=== PATIENT | male | born 1935 | race African-American/Black ===

== ENCOUNTER 2019-03-08 17:57 | Emergency (ER) | payer OTHER ==
[~2019-03-08] VITALS: Ht 188 cm; Wt 118.0 kg
[2019-03-08 19:13] LABS: EOSINOPHILS % 0.5 % (0.0-5.0); HEMATOCRIT. 46.9 % (42.0-52.0); LYMPHOCYTES % 7.3 % (20.0-50.0); MEAN CORPUSCULAR HEMOGLOBIN 33.5 pg (28.0-32.0); MEAN CORPUSCULAR VOLUME 98.4 fL (80.0-94.0); MEAN PLATELET VOLUME 8.7 fl (7.4-10.4); MONOCYTES % 9.5 % (2.0-8.0); NEUTROPHILS % 81.7 % (40.0-76.0); PLATELET 166 x1000/uL (130-400); RED BLOOD CELL COUNT 4.77 mill/uL (4.7-6.1); RED CELL DISTRIBUTION WIDTH 13.4 % (11.6-14.6)
[2019-03-08 19:14] LABS: CHLORIDE 111 mEq/L (98-107)
[2019-03-08 19:16] LABS: INR 1.1; PROTHROMBIN TIME 11.1 sec (9.6-11.0)
[2019-03-08 19:53] LABS: CLARITY URINE CLEAR (CLEAR); COLOR URINE YELLOW (YELLOW); KETONES URINE TRACE (NEGATIVE); LEUKOCYTE ESTERASE URINE NEGATIVE (NEGATIVE); NITRITE URINE NEGATIVE (NEGATIVE); OCCULT BLOOD URINE NEGATIVE (NEGATIVE); PROTEIN URINE NEGATIVE (NEGATIVE); SPECIFIC GRAVITY URINE 1.021 (1.005-1.030)
[2019-03-08] MEDS ORDERED: SODIUM CHLORIDE 0.9% 1,000 ML IV ONE (22:00)
[2019-03-09 00:02] VITALS: BP 151/82
== END 2019-03-09 00:31 | disposition short-term general hospital (02) ==
LOC: ER 17:57 → CANBEDREQ 03-09 00:41
DX: R53.1 Weakness (principal); I10 Essential (primary) hypertension; H54.8 Legal blindness, as defined in USA; I69.354 Hemiplegia and hemiparesis following cerebral infarction affecting left non-dominant side
CPT/HCPCS: 36415; 71045; 81003; 83605; 83880; 84484; 93005; 99285

== ENCOUNTER 2019-08-17 12:35 | Emergency (ER) | payer OTHER ==
[~2019-08-17] VITALS: Ht 175.3 cm; Wt 72.8 kg
[2019-08-17] MEDS ORDERED: AMLO10TA80 PO (12:45)
[2019-08-17] MEDS ORDERED: ATOR-2 PO (12:45)
[2019-08-17] MEDS ORDERED: CLOP75TA33 PO (12:45)
[2019-08-17] MEDS ORDERED: LISI40TA4 PO (12:46)
[2019-08-17 13:05] LABS: BASOPHILS % 1.2 % (0.0-2.0); EOSINOPHILS % 2.4 % (0.0-5.0); HEMATOCRIT. 50.5 % (42.0-52.0); HEMOGLOBIN. 17.2 g/dL (14.0-18.0); LYMPHOCYTES % 28.7 % (20.0-50.0); MEAN CORPUSCULAR HEMOGLOBIN 32.8 pg (28.0-32.0); MEAN CORPUSCULAR VOLUME 96.6 fL (80.0-94.0); MEAN PLATELET VOLUME 8.9 fl (7.4-10.4); MONOCYTES % 8.9 % (2.0-8.0); NEUTROPHILS % 58.8 % (40.0-76.0); PLATELET 187 x1000/uL (130-400); RED BLOOD CELL COUNT 5.23 mill/uL (4.7-6.1)
[2019-08-17 13:12] LABS: CHLORIDE 113 mEq/L (98-107)
[2019-08-17 13:14] LABS: PARTIAL THROMBOPLASTIN TIME 26.1 sec (23.4-31.0); PROTHROMBIN TIME 10.5 sec (9.6-11.0)
[2019-08-17] MEDS ORDERED: ASPIRIN 325MG EC TABLET PO ONE (13:45)
[2019-08-17 15:06] VITALS: BP 140/85
== END 2019-08-17 15:21 | disposition short-term general hospital (02) ==
LOC: ER 12:35 → CANBEDREQ 15:10 → ER 15:21
DX: M62.81 Muscle weakness (generalized) (principal); I69.351 Hemiplegia and hemiparesis following cerebral infarction affecting right dominant side; I10 Essential (primary) hypertension; E78.00 Pure hypercholesterolemia, unspecified; F14.10 Cocaine abuse, uncomplicated; F11.10 Opioid abuse, uncomplicated; H54.8 Legal blindness, as defined in USA
CPT/HCPCS: 36415; 71045; 80053; 83880; 84484; 85025; 93005; 99285

== ENCOUNTER 2019-10-03 23:39 | Emergency (ER) | payer OTHER ==
[~2019-10-03] VITALS: Ht 188 cm; Wt 104.0 kg
[~2019-10-03 23:39] MED LIST: AMLO10TA80 PO; ATOR-2 PO; CLOP75TA33 PO; LISI40TA4 PO
[2019-10-04 00:58] LABS: BASOPHILS % 0.1 % (0.0-2.0); EOSINOPHILS % 3.3 % (0.0-5.0); HEMOGLOBIN. 14.8 g/dL (14.0-18.0); LYMPHOCYTES % 30.7 % (20.0-50.0); MEAN CORPUSCULAR HEMOGLOBIN 33.7 pg (28.0-32.0); MEAN CORPUSCULAR VOLUME 97.6 fL (80.0-94.0); MEAN PLATELET VOLUME 8.7 fl (7.4-10.4); MONOCYTES % 9.9 % (2.0-8.0); PLATELET 157 x1000/uL (130-400); RED CELL DISTRIBUTION WIDTH 13.9 % (11.6-14.6)
[2019-10-04] MEDS ORDERED: HYDROCODONE/ACETAMINOPHEN 5/325MG TABLET PO ONE (01:00)
[2019-10-04 01:02] LABS: CHLORIDE 114 mEq/L (98-107)
[2019-10-04 01:04] LABS: PARTIAL THROMBOPLASTIN TIME 26.6 sec (23.4-31.0)
[2019-10-04] MEDS ORDERED: ASPIRIN 325MG TABLET PO SCH (05:30)
[2019-10-04 07:14] VITALS: BP 148/91
== END 2019-10-04 07:14 | disposition short-term general hospital (02) ==
LOC: ER 23:39
DX: R20.0 Anesthesia of skin (principal); M25.561 Pain in right knee; M25.562 Pain in left knee; I10 Essential (primary) hypertension; Z79.899 Other long term (current) drug therapy
CPT/HCPCS: 36415; 71045; 80053; 83880; 84484; 85025; 93005; 99285

== ENCOUNTER 2020-01-02 00:30 | Emergency (ER) | payer OTHER ==
[~2020-01-02] VITALS: Ht 180.3 cm; Wt 122.0 kg
[2020-01-02] MEDS ORDERED: ACETAMINOPHEN 325MG TABLET PO ONE (01:30)
[2020-01-02] MEDS ORDERED: HYDROCODONE/ACETAMINOPHEN 5/325MG TABLET PO ONE (02:45)
[2020-01-02 04:16] VITALS: BP 156/82
== END 2020-01-02 04:29 | disposition short-term general hospital (02) ==
LOC: ER 00:30
DX: M54.5 Low back pain (principal); I10 Essential (primary) hypertension; M19.90 Unspecified osteoarthritis, unspecified site; H54.8 Legal blindness, as defined in USA; W01.0XXA Fall on same level from slipping, tripping and stumbling without subsequent striking against object, initial encounter; Y93.89 Activity, other specified; Y92.018 Other place in single-family (private) house as the place of occurrence of the external cause
CPT/HCPCS: 99285

== ENCOUNTER 2020-08-06 02:24 | Emergency (ER) | payer OTHER ==
[~2020-08-06] VITALS: Ht 175.3 cm; Wt 104.0 kg
[~2020-08-06 02:24] MED LIST changes: +LISI40TA13 PO; -LISI40TA4 PO
[2020-08-06] MEDS ORDERED: SODIUM CHLORIDE 0.9% 1,000 ML IV ONE (03:15)
[2020-08-06 06:57] VITALS: BP 141/81
== END 2020-08-06 08:09 | disposition home or self-care (01) ==
LOC: ER 02:24
DX: R42 Dizziness and giddiness (principal); I10 Essential (primary) hypertension; M19.90 Unspecified osteoarthritis, unspecified site; H54.8 Legal blindness, as defined in USA
CPT/HCPCS: 93005; 96360; 99283; J7030

== ENCOUNTER 2020-10-08 16:16 | Inpatient (IN) | payer OTHER ==
[~2020-10-08] VITALS: Ht 177.8 cm; Wt 108.0 kg
[2020-10-08 17:21] LABS: BASOPHILS % 0.8 % (0.0-2.0); EOSINOPHILS % 1.2 % (0.0-5.0); HEMATOCRIT. 41.7 % (42.0-52.0); LYMPHOCYTES % 22.9 % (20.0-50.0); MEAN CORPUSCULAR HEMOGLOBIN 34.4 pg (28.0-32.0); MEAN CORPUSCULAR VOLUME 95.5 fL (80.0-94.0); MEAN PLATELET VOLUME 8.4 fl (7.4-10.4); MONOCYTES % 10.1 % (2.0-8.0); PLATELET 169 x1000/uL (130-400); RED BLOOD CELL COUNT 4.37 mill/uL (4.7-6.1); RED CELL DISTRIBUTION WIDTH 12.8 % (11.6-14.6)
[2020-10-08 17:24] LABS: CLARITY URINE CLEAR (CLEAR); COLOR URINE YELLOW (YELLOW); KETONES URINE TRACE (NEGATIVE); LEUKOCYTE ESTERASE URINE NEGATIVE (NEGATIVE); NITRITE URINE NEGATIVE (NEGATIVE); OCCULT BLOOD URINE NEGATIVE (NEGATIVE); PH URINE 5.5 (4.5-8.0); PROTEIN URINE NEGATIVE (NEGATIVE); SPECIFIC GRAVITY URINE 1.023 (1.005-1.030); UROBILINOGEN URINE 0.2 E.U./dL (0.2-1.0)
[2020-10-08 17:28] LABS: CHLORIDE 117 mEq/L (98-107)
[2020-10-08 17:30] LABS: PROTHROMBIN TIME 11.2 sec (9.6-11.0)
[2020-10-08 17:32] LABS: ETHANOL BLOOD < 10 mg/dL
[2020-10-08] MEDS ORDERED: SODIUM CHLORIDE 0.9% 1,000 ML IV ONE (18:00)
[2020-10-08] MEDS ORDERED: ONDANSETRON HCL 4MG/2ML INJ IV PRN (19:45)
[2020-10-08] MEDS ORDERED: CLONIDINE 0.1MG TABLET PO PRN (19:45)
[2020-10-08] MEDS ORDERED: ACETAMINOPHEN 325MG TABLET PO PRN (19:45)
[2020-10-08] MEDS ORDERED: DIPHENHYDRAMINE 50MG/ML VIAL IV PRN (19:45)
[2020-10-08] MEDS ORDERED: IPRATROPIUM/ALBUTEROL 0.5-3(2.5)MG/3ML NEB HHN PRN (19:45)
[2020-10-08 21:30] VITALS: BP 124/47
[2020-10-08 22:00] VITALS: BP 124/52
[2020-10-09] VITALS (81 sets, daily range): BP systolic 91–158; BP diastolic 44–103
[2020-10-09] MEDS: DOPAMINE 400MG/250ML PREMIX 250 ML IV PRN ×2 (03:27→13:54)
[2020-10-09 05:17] LABS: BASOPHILS % 1.1 % (0.0-2.0); EOSINOPHILS % 2.6 % (0.0-5.0); HEMATOCRIT. 45.6 % (42.0-52.0); HEMOGLOBIN. 15.5 g/dL (14.0-18.0); MEAN CORPUSCULAR HEMOGLOBIN 33.2 pg (28.0-32.0); MEAN CORPUSCULAR VOLUME 97.5 fL (80.0-94.0); MEAN PLATELET VOLUME 8.6 fl (7.4-10.4); NEUTROPHILS % 47.3 % (40.0-76.0); PLATELET 160 x1000/uL (130-400); RED BLOOD CELL COUNT 4.68 mill/uL (4.7-6.1); RED CELL DISTRIBUTION WIDTH 12.9 % (11.6-14.6)
[2020-10-09 05:25] LABS: CHLORIDE 116 mEq/L (98-107)
[2020-10-09 05:37] LABS: LDL CHOLESTEROL 28 mg/dL (5-100)
[2020-10-09 05:38] LABS: HDL CHOLESTEROL 46 mg/dL (40-59)
[2020-10-09] MEDS ORDERED: MAGNESIUM 2 G PREMIX 50 ML IV SCH (07:00)
[2020-10-09] MEDS ORDERED: LIDOCAINE HCL 1% 20ML VIAL (Pyxis) INJ ONE ×2 (07:52→14:18)
[2020-10-09] MEDS: MAGNESIUM OXIDE 400MG TABLET PO SCH (09:00)
[2020-10-09] MEDS: SODIUM CHLORIDE 0.45% 1,000 ML IV SCH ×2 (09:37→21:56)
[2020-10-09] MEDS ORDERED: GENTAMICIN/NS IRRIGATION 500 ML IR ONE (14:18)
[2020-10-09] MEDS ORDERED: IODIXANOL 320MG/ML 100 ML BOTTLE IV ONE (14:18)
[2020-10-09] MEDS ORDERED: GENTAMICIN SULF 40MG/ML 2ML VIAL ONE (14:18)
[2020-10-09] MEDS ORDERED: CEFAZOLIN 1000MG PREMIX 50 ML IV ONE (14:21)
[2020-10-09] MEDS ORDERED: MIDAZOLAM HCL 2 MG/2 ML VIAL ONE ×2 (14:24→15:06)
[2020-10-09] MEDS ORDERED: FENTANYL CITRATE/PF 50MCG/ML 2ML VIAL ONE (14:24)
[2020-10-09] MEDS: HYDROCODONE/ACETAMINOPHEN 5/325MG TABLET PO PRN (17:24)
[2020-10-09] MEDS ORDERED: CEFAZOLIN 1000MG PREMIX 50 ML IV SCH (18:00)
[2020-10-09] MEDS: MORPHINE SULFATE 2 MG/ML CPJ (NOT FOR IM USE) IV PRN (19:54)
[2020-10-09] MEDS: CEFAZOLIN 1000MG PREMIX 50 ML IV SCH (21:53)
[2020-10-09] MEDS: ATORVASTATIN CALCIUM 40MG TABLET PO SCH (21:53)
[2020-10-09] MEDS ORDERED: CEFAZOLIN SODIUM 1000MG/VIAL IV SCH (22:00)
[2020-10-10] VITALS (88 sets, daily range): BP systolic 110–183; BP diastolic 56–108
[2020-10-10 05:41] LABS: BASOPHILS % 0.4 % (0.0-2.0); EOSINOPHILS % 1.8 % (0.0-5.0); HEMATOCRIT. 42.7 % (42.0-52.0); HEMOGLOBIN. 14.7 g/dL (14.0-18.0); LYMPHOCYTES % 17.5 % (20.0-50.0); MEAN CORPUSCULAR HEMOGLOBIN 33.2 pg (28.0-32.0); MEAN CORPUSCULAR VOLUME 96.6 fL (80.0-94.0); MEAN PLATELET VOLUME 8.7 fl (7.4-10.4); NEUTROPHILS % 69.3 % (40.0-76.0); PLATELET 152 x1000/uL (130-400); RED BLOOD CELL COUNT 4.42 mill/uL (4.7-6.1); RED CELL DISTRIBUTION WIDTH 12.9 % (11.6-14.6)
[2020-10-10 05:52] LABS: CHLORIDE 110 mEq/L (98-107)
[2020-10-10] MEDS: CEFAZOLIN 1000MG PREMIX 50 ML IV SCH ×3 (06:36→21:15)
[2020-10-10] MEDS: MORPHINE SULFATE 2 MG/ML CPJ (NOT FOR IM USE) IV PRN ×2 (06:39→13:17)
[2020-10-10] MEDS: MAGNESIUM OXIDE 400MG TABLET PO SCH (09:04)
[2020-10-10] MEDS: SODIUM CHLORIDE 0.45% 1,000 ML IV SCH (10:30)
[2020-10-10] MEDS: ATORVASTATIN CALCIUM 40MG TABLET PO SCH (21:13)
[2020-10-11] VITALS (24 sets, daily range): BP systolic 117–161; BP diastolic 63–99
[2020-10-11] MEDS: SODIUM CHLORIDE 0.45% 1,000 ML IV SCH ×3 (05:34→19:30)
[2020-10-11 05:48] LABS: BASOPHILS % 0.7 % (0.0-2.0); EOSINOPHILS % 5.3 % (0.0-5.0); HEMATOCRIT. 42.9 % (42.0-52.0); HEMOGLOBIN. 14.9 g/dL (14.0-18.0); LYMPHOCYTES % 26.8 % (20.0-50.0); MEAN CORPUSCULAR HEMOGLOBIN 33.5 pg (28.0-32.0); MEAN CORPUSCULAR VOLUME 96.5 fL (80.0-94.0); MEAN PLATELET VOLUME 8.7 fl (7.4-10.4); MONOCYTES % 12.6 % (2.0-8.0); NEUTROPHILS % 54.6 % (40.0-76.0); PLATELET 132 x1000/uL (130-400); RED BLOOD CELL COUNT 4.45 mill/uL (4.7-6.1)
[2020-10-11 06:11] LABS: CHLORIDE 113 mEq/L (98-107)
[2020-10-11] MEDS: MAGNESIUM OXIDE 400MG TABLET PO SCH (09:07)
[2020-10-11] MEDS: ENOXAPARIN 30MG/0.3ML SYR SUBCUT SCH ×2 (12:34→20:13)
[2020-10-11] MEDS: HYDROCODONE/ACETAMINOPHEN 5/325MG TABLET PO PRN (15:16)
[2020-10-11] MEDS ORDERED: HYDRALAZINE 20MG/ML VIAL IV NR (19:30)
[2020-10-11] MEDS: ATORVASTATIN CALCIUM 40MG TABLET PO SCH (20:13)
== END 2020-10-11 21:25 | disposition short-term general hospital (02) | DRG 243 ==
LOC: ER 16:16 → 5EST 19:54 → ENRESERV 20:29 → 5EST 22:12 → CVICU 10-09 00:30
PROVIDERS: ADMIT Internal Medicine; ATTEND Internal Medicine
PROC: 0JH606Z Insertion of Pacemaker, Dual Chamber into Chest Subcutaneous Tissue and Fascia, Open Approach (ICD-10-PCS; principal; 2020-10-09)
PROC: 02H63JZ Insertion of Pacemaker Lead into Right Atrium, Percutaneous Approach (ICD-10-PCS; 2020-10-09)
PROC: 02HK3JZ Insertion of Pacemaker Lead into Right Ventricle, Percutaneous Approach (ICD-10-PCS; 2020-10-09)
DX: I44.2 Atrioventricular block, complete (principal); I69.351 Hemiplegia and hemiparesis following cerebral infarction affecting right dominant side; I49.5 Sick sinus syndrome; E78.5 Hyperlipidemia, unspecified; E83.42 Hypomagnesemia; E78.00 Pure hypercholesterolemia, unspecified; M19.90 Unspecified osteoarthritis, unspecified site; I10 Essential (primary) hypertension; I95.9 Hypotension, unspecified; Z20.822 Contact with and (suspected) exposure to COVID-19; I73.9 Peripheral vascular disease, unspecified; J44.9 Chronic obstructive pulmonary disease, unspecified; Z79.899 Other long term (current) drug therapy; Z79.01 Long term (current) use of anticoagulants; Z87.891 Personal history of nicotine dependence
CPT/HCPCS: 33208; 36415; 71045; 76937; 80048; 80053; 80061; 80320; 81003; 83605; 83735; 83880; 84443; 84484; 85025; 85379; 87426; 93005; 93306; 93970; 99291; A4565; C1725; C1769; C1785; C1898; J0360; J0690; J1265; J1580; J1650; J2250; J2270; J2405; J3010; J3475; J3490; J7030; Q9967; G0480

== ENCOUNTER 2020-12-25 11:06 | Emergency (ER) | payer OTHER ==
[~2020-12-25] VITALS: Ht 172.7 cm; Wt 103.0 kg
[2020-12-25] MEDS ORDERED: TRAMADOL 50MG TABLET PO ONE (11:45)
[2020-12-25] MEDS ORDERED: NITROGLYCERIN OINT 1GM/INCH UDPKT TD ONE (11:45)
[2020-12-25 12:13] LABS: EOSINOPHILS % 1.8 % (0.0-5.0); HEMOGLOBIN. 13.6 g/dL (14.0-18.0); LYMPHOCYTES % 22.7 % (20.0-50.0); MEAN PLATELET VOLUME 8.6 fl (7.4-10.4); MONOCYTES % 13.2 % (2.0-8.0); NEUTROPHILS % 61.3 % (40.0-76.0); PLATELET 157 x1000/uL (130-400); RED BLOOD CELL COUNT 4.11 mill/uL (4.7-6.1); RED CELL DISTRIBUTION WIDTH 13.6 % (11.6-14.6)
[2020-12-25 12:21] LABS: CHLORIDE 112 mEq/L (98-107)
[2020-12-25] MEDS ORDERED: SODIUM CHLORIDE 0.9% 500 ML IV ONE (12:45)
[2020-12-25 15:24] VITALS: BP 135/65
== END 2020-12-25 15:34 | disposition short-term general hospital (02) ==
LOC: ER 11:06 → CANBEDREQ 15:31 → ER 15:34
DX: R07.89 Other chest pain (principal); I10 Essential (primary) hypertension; E78.00 Pure hypercholesterolemia, unspecified; Z86.73 Personal history of transient ischemic attack (TIA), and cerebral infarction without residual deficits; Z98.890 Other specified postprocedural states
CPT/HCPCS: 36415; 71045; 80053; 83880; 84484; 85025; 93005; 99285; J7040

== ENCOUNTER 2021-03-16 13:09 | Emergency (ER) | payer OTHER ==
[~2021-03-16] VITALS: Ht 182.9 cm; Wt 82.0 kg
[2021-03-16] MEDS ORDERED: ASPIRIN 81MG TABLET PO ONE (14:45)
[2021-03-16 15:30] LABS: BASOPHILS % 0.8 % (0.0-2.0); EOSINOPHILS % 3.3 % (0.0-5.0); HEMATOCRIT. 43.7 % (42.0-52.0); HEMOGLOBIN. 14.2 g/dL (14.0-18.0); LYMPHOCYTES % 31.7 % (20.0-50.0); MEAN CORPUSCULAR HEMOGLOBIN 31.3 pg (28.0-32.0); MEAN CORPUSCULAR VOLUME 96.6 fL (80.0-94.0); MEAN PLATELET VOLUME 8.4 fl (7.4-10.4); MONOCYTES % 11.7 % (2.0-8.0); NEUTROPHILS % 52.5 % (40.0-76.0); PLATELET 160 x1000/uL (130-400); RED BLOOD CELL COUNT 4.52 mill/uL (4.7-6.1); RED CELL DISTRIBUTION WIDTH 13.9 % (11.6-14.6)
[2021-03-16 15:40] LABS: CHLORIDE 110 mEq/L (98-107)
[2021-03-16 15:44] LABS: ETHANOL BLOOD < 10 mg/dL
[2021-03-16 20:35] VITALS: BP 166/93
[2021-03-16] MEDS ORDERED: MORPHINE SULFATE 2 MG/ML CPJ (NOT FOR IM USE) IV NR (21:30)
== END 2021-03-16 20:53 | disposition short-term general hospital (02) ==
LOC: ER 13:09 → CANBEDREQ 22:49
DX: E66.9 Obesity, unspecified (principal); E78.00 Pure hypercholesterolemia, unspecified; I25.2 Old myocardial infarction; I10 Essential (primary) hypertension; Z68.24 Body mass index [BMI] 24.0-24.9, adult; Z86.73 Personal history of transient ischemic attack (TIA), and cerebral infarction without residual deficits; Z98.890 Other specified postprocedural states; Z13.9 Encounter for screening, unspecified
CPT/HCPCS: 36415; 71045; 80053; 80320; 83605; 83880; 84484; 85025; 99285; G0480

== ENCOUNTER 2021-05-21 18:00 | Emergency (ER) | payer OTHER ==
[~2021-05-21] VITALS: Ht 177.8 cm; Wt 110.0 kg
[2021-05-21 18:42] LABS: BASOPHILS % 1.1 % (0.0-2.0); EOSINOPHILS % 3.2 % (0.0-5.0); HEMATOCRIT. 43.6 % (42.0-52.0); HEMOGLOBIN. 14.6 g/dL (14.0-18.0); LYMPHOCYTES % 33.5 % (20.0-50.0); MEAN CORPUSCULAR HEMOGLOBIN 32.1 pg (28.0-32.0); MEAN CORPUSCULAR VOLUME 95.8 fL (80.0-94.0); MEAN PLATELET VOLUME 8.5 fl (7.4-10.4); MONOCYTES % 11.8 % (2.0-8.0); NEUTROPHILS % 50.4 % (40.0-76.0); PLATELET 148 x1000/uL (130-400); RED BLOOD CELL COUNT 4.55 mill/uL (4.7-6.1); RED CELL DISTRIBUTION WIDTH 13.7 % (11.6-14.6)
[2021-05-21 19:23] LABS: CHLORIDE 114 mEq/L (98-107)
[2021-05-21] MEDS ORDERED: SODIUM CHLORIDE 0.9% 1,000 ML IV ONE (21:15)
[2021-05-22 00:09] VITALS: BP 148/85
== END 2021-05-22 01:16 | disposition short-term general hospital (02) ==
LOC: ER 18:00
DX: R42 Dizziness and giddiness (principal); D72.819 Decreased white blood cell count, unspecified; E87.0 Hyperosmolality and hypernatremia; E78.00 Pure hypercholesterolemia, unspecified; I25.2 Old myocardial infarction; H54.7 Unspecified visual loss; I10 Essential (primary) hypertension; M19.90 Unspecified osteoarthritis, unspecified site; Z95.0 Presence of cardiac pacemaker; Z86.73 Personal history of transient ischemic attack (TIA), and cerebral infarction without residual deficits
CPT/HCPCS: 36415; 71045; 80053; 83880; 84484; 85025; 93005; 96360; 99285

== ENCOUNTER 2021-07-14 07:44 | Emergency (ER) | payer OTHER ==
[~2021-07-14] VITALS: Ht 177.8 cm; Wt 102.0 kg
[2021-07-14] MEDS ORDERED: MECLIZINE 25MG TABLET PO ONE (08:30)
[2021-07-14 08:58] LABS: EOSINOPHILS % 3.2 % (0.0-5.0); HEMATOCRIT. 43.8 % (42.0-52.0); LYMPHOCYTES % 36.7 % (20.0-50.0); MEAN CORPUSCULAR HEMOGLOBIN 33.1 pg (28.0-32.0); MEAN CORPUSCULAR VOLUME 96.8 fL (80.0-94.0); MEAN PLATELET VOLUME 8.2 fl (7.4-10.4); MONOCYTES % 11.9 % (2.0-8.0); NEUTROPHILS % 47.2 % (40.0-76.0); PLATELET 141 x1000/uL (130-400); RED BLOOD CELL COUNT 4.53 mill/uL (4.7-6.1); RED CELL DISTRIBUTION WIDTH 14.2 % (11.6-14.6)
[2021-07-14 09:06] LABS: CHLORIDE 110 mEq/L (98-107)
[2021-07-14 09:10] LABS: ETHANOL BLOOD < 10 mg/dL
[2021-07-14 11:47] LABS: *AMPHETAMINES SCREEN URINE NEGATIVE (NEGATIVE); *BARBITURATES SCREEN URINE NEGATIVE (NEGATIVE); *BENZODIAZEPINES SCREEN URINE NEGATIVE (NEGATIVE); *COCAINE SCREEN URINE NEGATIVE (NEGATIVE); METHADONE URINE SCREEN NEGATIVE (NEGATIVE)
[2021-07-14 11:48] LABS: CANNABINOID URINE SCREEN NEGATIVE (NEGATIVE); OPIATES URINE SCREEN NEGATIVE (NEGATIVE); PHENCYCLIDINE URINE SCREEN NEGATIVE (NEGATIVE)
[2021-07-14] MEDS ORDERED: MECL-159 MT (12:29)
[2021-07-14 17:25] VITALS: BP 144/77
== END 2021-07-14 17:35 | disposition home or self-care (01) ==
LOC: ER 07:44
DX: R55 Syncope and collapse (principal); R42 Dizziness and giddiness; I10 Essential (primary) hypertension; E78.5 Hyperlipidemia, unspecified; I44.2 Atrioventricular block, complete; I69.351 Hemiplegia and hemiparesis following cerebral infarction affecting right dominant side; H54.8 Legal blindness, as defined in USA
CPT/HCPCS: 36415; 71045; 80053; 80305; 80320; 83880; 84484; 85025; 93005; 99285; J8597; G0480

== ENCOUNTER 2021-08-24 00:52 | Emergency (ER) | payer OTHER ==
[~2021-08-24] VITALS: Ht 180.3 cm; Wt 113.0 kg
[~2021-08-24 00:52] MED LIST changes: +MECL-159 MT
[2021-08-24 02:29] LABS: HEMATOCRIT. 44.7 % (42.0-52.0); HEMOGLOBIN. 15.3 g/dL (14.0-18.0); MEAN CORPUSCULAR HEMOGLOBIN 33.5 pg (28.0-32.0); MEAN CORPUSCULAR VOLUME 98.1 fL (80.0-94.0); MEAN PLATELET VOLUME 9.4 fl (7.4-10.4); PLATELET 181 x1000/uL (130-400); RED BLOOD CELL COUNT 4.56 mill/uL (4.7-6.1); RED CELL DISTRIBUTION WIDTH 13.4 % (11.6-14.6)
[2021-08-24 02:34] LABS: CHLORIDE 113 mEq/L (98-107)
[2021-08-24 07:14] LABS: PLATELET ESTIMATE NORMAL
[2021-08-24 11:05] VITALS: BP 155/85
== END 2021-08-24 11:12 | disposition home or self-care (01) ==
LOC: ER 00:52
DX: R10.12 Left upper quadrant pain (principal); Z86.73 Personal history of transient ischemic attack (TIA), and cerebral infarction without residual deficits; Z79.899 Other long term (current) drug therapy
CPT/HCPCS: 36415; 71045; 80053; 83880; 84484; 85025; 93005; 99285

== ENCOUNTER 2021-10-26 18:31 | Emergency (ER) | payer OTHER ==
[~2021-10-26] VITALS: Ht 165.1 cm; Wt 75.0 kg
[2021-10-26] MEDS ORDERED: ACETAMINOPHEN 325MG TABLET PO ONE (19:30)
[2021-10-26] MEDS ORDERED: PROCHLORPERAZINE 10MG/2ML VIAL IV ONE (19:30)
[2021-10-26] MEDS ORDERED: DIPHENHYDRAMINE 50MG/ML VIAL IV ONE (19:30)
[2021-10-26 19:59] LABS: BASOPHILS % 0.7 % (0.0-2.0); EOSINOPHILS % 2.8 % (0.0-5.0); HEMATOCRIT. 45.5 % (42.0-52.0); HEMOGLOBIN. 15.4 g/dL (14.0-18.0); LYMPHOCYTES % 35.8 % (20.0-50.0); MEAN CORPUSCULAR VOLUME 97.3 fL (80.0-94.0); MEAN PLATELET VOLUME 8.6 fl (7.4-10.4); MONOCYTES % 10.2 % (2.0-8.0); NEUTROPHILS % 50.5 % (40.0-76.0); PLATELET 141 x1000/uL (130-400); RED BLOOD CELL COUNT 4.68 mill/uL (4.7-6.1); RED CELL DISTRIBUTION WIDTH 13.1 % (11.6-14.6)
[2021-10-26 20:06] LABS: CHLORIDE 111 mEq/L (98-107)
[2021-10-26] MEDS ORDERED: ACETAMINOPHEN 325MG TABLET PO NR (21:30)
[2021-10-26] MEDS ORDERED: DIPHENHYDRAMINE 50MG/ML VIAL IV NR (21:30)
[2021-10-27 01:18] VITALS: BP 146/88
== END 2021-10-27 01:43 | disposition home or self-care (01) ==
LOC: ER 18:31
DX: R00.2 Palpitations (principal); R51.9 Headache, unspecified; I10 Essential (primary) hypertension; Z86.73 Personal history of transient ischemic attack (TIA), and cerebral infarction without residual deficits
CPT/HCPCS: 36415; 70450; 80053; 84484; 85025; 93005; 96374; 96375; 99285; J0780; J1200

== ENCOUNTER 2022-07-30 19:34 | Emergency (ER) | payer OTHER ==
[~2022-07-30] VITALS: Ht 175.3 cm; Wt 125.0 kg
[2022-07-30 21:15] LABS: BASOPHILS % 1.2 % (0.0-2.0); EOSINOPHILS % 2.3 % (0.0-5.0); HEMOGLOBIN. 14.4 g/dL (14.0-18.0); LYMPHOCYTES % 32.3 % (20.0-50.0); MEAN CORPUSCULAR HEMOGLOBIN 33.4 pg (28.0-32.0); MEAN CORPUSCULAR VOLUME 97.3 fL (80.0-94.0); MONOCYTES % 10.7 % (2.0-8.0); NEUTROPHILS % 53.5 % (40.0-76.0); PLATELET 142 x1000/uL (130-400); RED BLOOD CELL COUNT 4.32 mill/uL (4.7-6.1); RED CELL DISTRIBUTION WIDTH 13.4 % (11.6-14.6)
[2022-07-30 21:20] LABS: CLARITY URINE CLEAR (CLEAR); COLOR URINE YELLOW (YELLOW); KETONES URINE NEGATIVE (NEGATIVE); LEUKOCYTE ESTERASE URINE NEGATIVE (NEGATIVE); NITRITE URINE NEGATIVE (NEGATIVE); OCCULT BLOOD URINE NEGATIVE (NEGATIVE); PROTEIN URINE NEGATIVE (NEGATIVE); SPECIFIC GRAVITY URINE 1.018 (1.005-1.030)
[2022-07-30 21:27] LABS: CHLORIDE 111 mEq/L (98-107)
[2022-07-30 22:01] VITALS: BP 119/62
== END 2022-07-30 23:58 | disposition home or self-care (01) ==
LOC: ER 20:43
DX: R55 Syncope and collapse (principal); I10 Essential (primary) hypertension; Z86.73 Personal history of transient ischemic attack (TIA), and cerebral infarction without residual deficits
CPT/HCPCS: 36415; 80053; 81003; 84484; 85025; 93005; 99284

== ENCOUNTER 2022-08-28 22:28 | Emergency (ER) | payer OTHER ==
[~2022-08-28] VITALS: Ht 177.8 cm; Wt 109.0 kg
[2022-08-29] MEDS ORDERED: HYDROCODONE/ACETAMINOPHEN 5/325MG TABLET PO ONE (00:15)
[2022-08-29 00:18] VITALS: BP 149/73
[2022-08-29 01:32] LABS: BASOPHILS % 0.7 % (0.0-2.0); EOSINOPHILS % 3.4 % (0.0-5.0); HEMATOCRIT. 43.6 % (42.0-52.0); HEMOGLOBIN. 14.4 g/dL (14.0-18.0); LYMPHOCYTES % 31.9 % (20.0-50.0); MEAN CORPUSCULAR HEMOGLOBIN 32.8 pg (28.0-32.0); MONOCYTES % 10.1 % (2.0-8.0); NEUTROPHILS % 53.9 % (40.0-76.0); PLATELET 171 x1000/uL (130-400); RED CELL DISTRIBUTION WIDTH 13.9 % (11.6-14.6)
[2022-08-29 01:43] LABS: CHLORIDE 112 mEq/L (98-107)
== END 2022-08-29 06:23 | disposition home or self-care (01) ==
LOC: ER 22:28
DX: R00.2 Palpitations (principal); I10 Essential (primary) hypertension; Z86.73 Personal history of transient ischemic attack (TIA), and cerebral infarction without residual deficits
CPT/HCPCS: 36415; 71045; 80053; 84484; 85025; 93005; 99285

== ENCOUNTER 2023-04-16 23:15 | Emergency (ER) | payer OTHER ==
[~2023-04-16] VITALS: Ht 175.3 cm; Wt 82.0 kg
[~2023-04-16 23:15] MED LIST changes: -MECL-159 MT; +MECL-299 MT
[2023-04-16 23:27] VITALS: O2SAT 97
[2023-04-17 00:19] LABS: BASOPHILS % 0.5 % (0.0-2.0); DIFFERENTIAL COMMENT 0; EOSINOPHILS % 1.9 % (0.0-5.0); HEMATOCRIT. 45.3 % (42.0-52.0); HEMOGLOBIN. 14.8 g/dL (14.0-18.0); LYMPHOCYTES % 28.6 % (20.0-50.0); MEAN CORPUSCULAR HGB CONC 32.8 g/dL (31.0-37.0); MEAN CORPUSCULAR VOLUME 100.7 fL (80.0-94.0); MEAN PLATELET VOLUME 7.8 fl (7.4-10.4); MONOCYTES % 9.9 % (2.0-8.0); NEUTROPHILS % 59.1 % (40.0-76.0); PLATELET 147 x1000/uL (130-400); RED CELL DISTRIBUTION WIDTH 13.3 % (11.6-14.6); WHITE BLOOD COUNT 4.7 x1000/uL (4.5-11.0)
[2023-04-17 00:31] LABS: ALANINE AMINOTRANSFERASE 16 IU/L (10-49); ALBUMIN 3.8 g/dL (3.2-4.8); ASPARTATE AMINOTRANSFERASE 20 IU/L (<34); BILIRUBIN TOTAL 0.8 mg/dL (0.1-1.0); CALCIUM 9.1 mg/dL (8.7-10.4); CARBON DIOXIDE 30 mEq/L (21-32); CHLORIDE 111 mEq/L (98-107); CREATININE 1.3 mg/dL (0.6-1.3); GLUCOSE 104 mg/dL (70-105); POTASSIUM 3.8 mEq/L (3.5-5.1); PROTEIN TOTAL 6.9 g/dL (6.0-8.3); SODIUM 144 mEq/L (136-145); TROPONIN I HIGH SENSITIVITY 21 ng/L (3.0-53); UREA NITROGEN BLOOD 11 mg/dL (9-23)
[2023-04-17] MEDS ORDERED: ACETAMINOPHEN 325MG TABLET PO ONE (02:30)
[2023-04-17 03:27] LABS: TROPONIN I HIGH SENSITIVITY 24 ng/L (3.0-53)
[2023-04-17 09:28] VITALS: BP 156/156; PULSE 78; RESP 18; TEMP 98.7
== END 2023-04-17 10:01 | disposition home or self-care (01) ==
LOC: ER 23:28
DX: R00.2 Palpitations (principal); I10 Essential (primary) hypertension; Z86.73 Personal history of transient ischemic attack (TIA), and cerebral infarction without residual deficits; Z79.899 Other long term (current) drug therapy
CPT/HCPCS: 36415; 71045; 80053; 84484; 85025; 93005; 99285

== ENCOUNTER 2023-05-11 06:03 | Emergency (ER) | payer OTHER ==
[~2023-05-11] VITALS: Ht 175.3 cm; Wt 91.0 kg
[2023-05-11 06:17] VITALS: TEMP 98.3; O2SAT 98
[2023-05-11] MEDS ORDERED: ACETAMINOPHEN 325MG TABLET PO STA (06:24)
[2023-05-11 07:55] LABS: BASOPHILS % 0.6 % (0.0-2.0); EOSINOPHILS % 3.1 % (0.0-5.0); HEMATOCRIT. 44.4 % (42.0-52.0); HEMOGLOBIN. 14.7 g/dL (14.0-18.0); LYMPHOCYTES % 29.1 % (20.0-50.0); MEAN PLATELET VOLUME 8.6 fl (7.4-10.4); MONOCYTES % 9.8 % (2.0-8.0); NEUTROPHILS % 57.4 % (40.0-76.0); PLATELET 153 x1000/uL (130-400); RED BLOOD CELL COUNT 4.44 mill/uL (4.7-6.1); RED CELL DISTRIBUTION WIDTH 13.3 % (11.6-14.6); WHITE BLOOD COUNT 4.4 x1000/uL (4.5-11.0)
[2023-05-11 08:13] LABS: ALANINE AMINOTRANSFERASE 25 IU/L (10-49); ALBUMIN 3.7 g/dL (3.2-4.8); ASPARTATE AMINOTRANSFERASE 26 IU/L (<34); BILIRUBIN TOTAL 1.1 mg/dL (0.1-1.0); CALCIUM 9.1 mg/dL (8.7-10.4); CARBON DIOXIDE 24 mEq/L (21-32); CHLORIDE 110 mEq/L (98-107); CREATININE 1.2 mg/dL (0.6-1.3); GLUCOSE 94 mg/dL (70-105); POTASSIUM 4.4 mEq/L (3.5-5.1); PROTEIN TOTAL 6.8 g/dL (6.0-8.3); SODIUM 144 mEq/L (136-145); TROPONIN I HIGH SENSITIVITY 16 ng/L (3.0-53); UREA NITROGEN BLOOD 9 mg/dL (9-23)
[2023-05-11 08:18] LABS: INR 1.1; PROTHROMBIN TIME 11.3 sec (9.6-11.0)
[2023-05-11] MEDS ORDERED: ACETAMINOPHEN 325MG TABLET PO SCH (08:45)
[2023-05-11 11:22] LABS: CLARITY URINE CLEAR (CLEAR); COLOR URINE YELLOW (YELLOW); GLUCOSE URINE NEGATIVE (NEGATIVE); KETONES URINE NEGATIVE (NEGATIVE); LEUKOCYTE ESTERASE URINE NEGATIVE (NEGATIVE); NITRITE URINE NEGATIVE (NEGATIVE); OCCULT BLOOD URINE NEGATIVE (NEGATIVE); PROTEIN URINE NEGATIVE (NEGATIVE); SPECIFIC GRAVITY URINE 1.015 (1.005-1.030)
[2023-05-11 15:13] VITALS: BP 116/58; PULSE 68; RESP 17
== END 2023-05-11 17:20 | disposition home or self-care (01) ==
LOC: ER 06:03
DX: R51.9 Headache, unspecified (principal); Z86.73 Personal history of transient ischemic attack (TIA), and cerebral infarction without residual deficits; W18.30XA Fall on same level, unspecified, initial encounter; Y93.89 Activity, other specified; Y92.89 Other specified places as the place of occurrence of the external cause; Y99.8 Other external cause status
CPT/HCPCS: 36415; 71045; 80053; 81003; 84484; 85025; 93005; 99285

== ENCOUNTER 2024-01-31 18:45 | Emergency (ER) | payer OTHER ==
[~2024-01-31] VITALS: Ht 177.8 cm; Wt 114.0 kg
[2024-01-31 18:46] VITALS: O2SAT 97
[2024-01-31] MEDS: MORPHINE SULFATE 4 MG/ML INJ (FOR IV/IM USE) IV STA (19:26)
[2024-01-31] MEDS: NITROGLYCERIN 0.4MG TABLET SL SL PRN (19:27)
[2024-01-31 19:34] LABS: BASOPHILS % 0.8 % (0.0-2.0); EOSINOPHILS % 3.3 % (0.0-5.0); HEMATOCRIT. 41.5 % (42.0-52.0); HEMOGLOBIN. 14.2 g/dL (14.0-18.0); LYMPHOCYTES % 34.8 % (20.0-50.0); MEAN CORPUSCULAR HEMOGLOBIN 34.2 pg (28.0-32.0); MEAN CORPUSCULAR HGB CONC 34.2 g/dL (31.0-37.0); MEAN CORPUSCULAR VOLUME 99.9 fL (80.0-94.0); MEAN PLATELET VOLUME 7.7 fl (7.4-10.4); MONOCYTES % 11.2 % (2.0-8.0); NEUTROPHILS % 49.9 % (40.0-76.0); PLATELET 139 x1000/uL (130-400); RED BLOOD CELL COUNT 4.15 mill/uL (4.7-6.1); RED CELL DISTRIBUTION WIDTH 14.3 % (11.6-14.6); WHITE BLOOD COUNT 4.7 x1000/uL (4.5-11.0)
[2024-01-31 19:42] VITALS: TEMP 36.72516
[2024-01-31 19:43] LABS: CHLORIDE 112 mEq/L (98-107); POTASSIUM 4.5 mEq/L (3.5-5.1); SODIUM 143 mEq/L (136-145)
[2024-01-31 19:44] LABS: CARBON DIOXIDE 26 mEq/L (21-32)
[2024-01-31 19:45] LABS: CALCIUM 9.3 mg/dL (8.7-10.4)
[2024-01-31 19:49] LABS: GLUCOSE 106 mg/dL (70-105); UREA NITROGEN BLOOD 9 mg/dL (9-23)
[2024-01-31 19:50] LABS: CREATININE 1.6 mg/dL (0.6-1.3)
[2024-01-31 19:52] LABS: TROPONIN I HIGH SENSITIVITY 22 ng/L (3.0-53)
[2024-01-31 23:55] LABS: TROPONIN I HIGH SENSITIVITY 28 ng/L (3.0-53)
[2024-02-01 00:45] VITALS: BP 135/77; PULSE 65; RESP 14; O2SAT 95
== END 2024-02-01 01:10 | disposition short-term general hospital (02) ==
LOC: ER 18:45
DX: R07.89 Other chest pain (principal); I10 Essential (primary) hypertension; Z86.73 Personal history of transient ischemic attack (TIA), and cerebral infarction without residual deficits
CPT/HCPCS: 36415; 71045; 80048; 83880; 84484; 85025; 93005; 99285